=== PATIENT | female | born 1960 | race Caucasian/White ===

== ENCOUNTER 2021-03-01 11:24 | Inpatient (IN) | payer OTHER ==
[2021-02-24 10:27] LABS: BASOPHILS # (AUTO) 0.1 X10'3 (0-0.2); BASOPHILS % (AUTO) 0.9 % (0-1); EOSINOPHILS # (AUTO) 0.2 X10'3 (0-0.9); EOSINOPHILS % (AUTO) 2.1 % (0-6); HEMATOCRIT 40.3 % (35.0-45.0); HEMOGLOBIN 13.7 g/dl (12.0-16.0); LYMPHOCYTES # (AUTO) 0.6 X10'3 (1.1-4.8); MEAN CORPUSCULAR HGB CONC 33.9 g/dL (33.0-36.5); MEAN CORPUSCULAR VOLUME 94.4 FL (78-98); MEAN PLATELET VOLUME 9.6 FL (7.4-10.4); MONOCYTES # (AUTO) 0.7 X10'3 (0-0.9); MONOCYTES % (AUTO) 9.1 % (2-12); NEUTROPHILS # (AUTO) 6.6 X10'3 (1.8-7.7); NEUTROPHILS % (AUTO) 80.9 % (42-75); PLATELET COUNT 281 X10'3 (140-440); RED BLOOD COUNT 4.27 X10'6 (4.20-5.60); RED CELL DISTRIBUTION WIDTH 12.5 % (11.5-14.5); WHITE BLOOD COUNT 8.1 X10'3 (4.5-11.0)
[2021-02-24 10:46] LABS: ALANINE AMINOTRANSFERASE 12 U/L (12-78); ALBUMIN 2.6 G/DL (3.4-5.0); ALBUMIN/GLOBULIN RATIO 0.6 (1.1-1.5); ALKALINE PHOSPHATASE 102 IU/L (46-116); ANION GAP 10 (8-16); ASPARTATE AMINO TRANSFERASE 15 U/L (10-37); BILIRUBIN,TOTAL 0.3 MG/DL (0.1-1.0); BLOOD UREA NITROGEN 9 MG/DL (7-18); BUN/CREATININE RATIO 12.2 (6.6-38.0); CALCIUM 9.4 MG/DL (8.5-10.1); CHLORIDE 102 MMOL/L (99-107); CREATININE 0.74 MG/DL (0.40-0.90); GLUCOSE 104 MG/DL (70-104); POTASSIUM 4.1 MMOL/L (3.5-5.1); SODIUM 138 MMOL/L (135-145); TOTAL CARBON DIOXIDE 26.4 MMOL/L (24-32); TOTAL PROTEIN 7.3 G/DL (6.4-8.2); eGFR 80 ML/MIN
[2021-02-24 10:54] LABS: PARTIAL THROMBOPLASTIN TIME 29 SECONDS (22-32)
[2021-03-01] VITALS (14 sets, daily range): BP systolic 92–119; BP diastolic 44–68
[~2021-03-01] VITALS: Ht 162.6 cm; Wt 64.4 kg
[2021-03-01] MEDS ORDERED: fentaNYL/PF 50MCG/1 ML 2ML syringe ONE (11:30)
[2021-03-01] MEDS ORDERED: iohexol 350MG/ML 100ml bottle IV ONE (11:31)
[2021-03-01] MEDS ORDERED: iohexol 350 MG/ML 50ML vial IV ONE (11:31)
[2021-03-01] MEDS ORDERED: LIDOcaine 1% (10mg/ml)w/preservative injection 20ml MDV ONE (11:31)
[2021-03-01] MEDS ORDERED: midazolam 1 mg/ML 2ml injection ONE ×2 (11:31→12:32)
[2021-03-01] MEDS ORDERED: LORazepam 0.5 MG tablet PO PRN (11:50)
[2021-03-01] MEDS ORDERED: nitroGLYCERIN 0.4mg SUBLingual tab SL PRN (11:50)
[2021-03-01] MEDS ORDERED: normal saline 1,000 ML IV SCH (11:50)
[2021-03-01] MEDS ORDERED: diphenhydrAMINE 25mg capsule PO PRN (11:50)
[2021-03-01] MEDS ORDERED: NO HOME MEDS (11:54)
[2021-03-01 12:48] LABS: ISTAT HGB ART 11.2 g/dl (12.0-16.0); ISTAT Hct ART 33 %PCV (35-48); ISTAT O2 SATURATION ARTERIAL 88 % (95-98); ISTAT SOURCE ART
[2021-03-01 13:17] LABS: ISTAT Hct MIX 31 %PCV (35-48); ISTAT O2 SATURATION MIX VENOUS 65 % (60-80); ISTAT SOURCE VEN
[2021-03-01] MEDS ORDERED: HYDROcodone/acetaminophen 5mg/325mg tablet PO PRN (13:45)
[2021-03-01] MEDS ORDERED: proCHLORperazine 10 MG/2 ml inj IV PRN (13:45)
[2021-03-01] MEDS ORDERED: ondansetron/PF 4mg/2ml inj IV PRN ×2 (13:45→20:10)
[2021-03-01] MEDS ORDERED: HYDROcodone/acetaminophen 10/325mg tab PO PRN (13:45)
[2021-03-01] MEDS: normal saline 1000ml 1,000 ML IV SCH ×2 (13:45→21:01)
--- NOTE | 2021-03-01 18:55 | NUR ---
Patient SP02 82% on room air. Called and spoke with Dr. Head to update patient condition. Per MD patient to be admitted for further workup and observation.
[2021-03-01] MEDS ORDERED: CLOB25SO7 TOP (19:38)
[2021-03-01] MEDS ORDERED: ATOR10TA70 PO (19:38)
[2021-03-01] MEDS ORDERED: ESOM20CA PO (19:38)
[2021-03-01] MEDS ORDERED: acetaminophen 325mg tablet PO PRN (20:10)
[2021-03-01] MEDS ORDERED: potassium Cl 20 mEq SR tablet PO PRN ×2 (20:10)
[2021-03-01] MEDS ORDERED: magnesium hydroxide 30ml (MOM) UD suspension PO PRN (20:10)
[2021-03-01] MEDS ORDERED: potassium Cl 40MEQ/1/2NS 520ml 520 ML IV PRN ×2 (20:10)
[2021-03-01] MEDS ORDERED: mag hydrox/Alum hydrox/simeth 30ml oral suspension PO PRN (20:10)
--- NOTE | 2021-03-01 20:20 | NUR ---
Patient in room 3013B. I have received report from RICARDA Wesley and had the opportunity to ask questions and assume patient care.
--- NOTE | 2021-03-01 20:20 | NUR ---
Patient report given to RICARDA Flores on PCU. All questions and concerns addressed.
--- NOTE | 2021-03-02 00:33 | NUR ---
Pt O2 sat @2200 vitals was 87. Increased O2 delivery to 4.0L, rechecked, pt O2 sat was 90.
[2021-03-02 02:00] VITALS: BP 109/51
--- NOTE | 2021-03-02 02:35 | NUR ---
O2 Sat Pt 02 sat has been below 90% for 1/2 hr. Per O2 instructions, ordered ABG and called Dr. Santacruz, order for face mask. Paged RT.
[2021-03-02 02:57] LABS: ABG BASE EXCESS -3.8 mmol/L (-2.0-2.0); ABG HCO3 19.6 mmol/L (22.0-26.0); ABG OXYGEN SATURATION 86.3 % (94-97); ABG PO2 (T) 53.4 mmHg (75.0-100.0); ALLEN'S TEST POSITIVE; FLOW 4 L/min; FMetHb 0.3 % (0.0-1.5); PATIENT TEMPERATURE 37.2; TOTAL HEMOGLOBIN 11.9 G/dl (12.0-16.0)
--- NOTE | 2021-03-02 03:58 | NUR ---
Critical Value ABG results: pO2 53.4-RT put pt on venturi mask. Called Dr. Santacruz. Will continue to monitor.
[2021-03-02 06:00] VITALS: BP 103/53
--- NOTE | 2021-03-02 06:26 | NUR ---
Problems reprioritized. Patient bedside report given, questions answered & plan of care reviewed with RICARDA Huerta.
--- NOTE | 2021-03-02 07:29 | NUR ---
Patient in room PCU 3013. I have received report from adelfo kraft and had the opportunity to ask questions and assume patient care. Addendum: 03/02/21 at 0730 by Bradley Neal RN time was 0600
[2021-03-02 07:56] LABS: BASOPHILS # (AUTO) 0.1 X10'3 (0-0.2); BASOPHILS % (AUTO) 1.3 % (0-1); EOSINOPHILS # (AUTO) 0.2 X10'3 (0-0.9); EOSINOPHILS % (AUTO) 3.6 % (0-6); HEMATOCRIT 34.2 % (35.0-45.0); HEMOGLOBIN 11.7 g/dl (12.0-16.0); LYMPHOCYTES # (AUTO) 0.4 X10'3 (1.1-4.8); LYMPHOCYTES % (AUTO) 5.9 % (21-51); MEAN CORPUSCULAR HGB CONC 34.1 g/dL (33.0-36.5); MEAN CORPUSCULAR VOLUME 93.6 FL (78-98); MEAN PLATELET VOLUME 10.3 FL (7.4-10.4); MONOCYTES # (AUTO) 0.6 X10'3 (0-0.9); MONOCYTES % (AUTO) 8.1 % (2-12); NEUTROPHILS # (AUTO) 5.6 X10'3 (1.8-7.7); NEUTROPHILS % (AUTO) 81.1 % (42-75); PLATELET COUNT 256 X10'3 (140-440); RED BLOOD COUNT 3.65 X10'6 (4.20-5.60); RED CELL DISTRIBUTION WIDTH 12.5 % (11.5-14.5); WHITE BLOOD COUNT 6.9 X10'3 (4.5-11.0)
[2021-03-02] MEDS: K and/or MAG REPLACEMENT MC SCH ×2 (08:00→20:00)
[2021-03-02 08:01] LABS: RHEUM FACTOR QUAL REFLEX TITER NEGATIVE (Neg)
[2021-03-02 08:06] LABS: ALANINE AMINOTRANSFERASE 12 U/L (12-78); ALBUMIN 1.7 G/DL (3.4-5.0); ALBUMIN/GLOBULIN RATIO 0.4 (1.1-1.5); ALKALINE PHOSPHATASE 75 IU/L (46-116); ANION GAP 10 (8-16); ASPARTATE AMINO TRANSFERASE 15 U/L (10-37); BILIRUBIN,TOTAL 0.3 MG/DL (0.1-1.0); BLOOD UREA NITROGEN 7 MG/DL (7-18); BUN/CREATININE RATIO 12.3 (6.6-38.0); C-REACTIVE PROTEIN 13.22 MG/DL (0.0-0.5); CALCIUM 8.4 MG/DL (8.5-10.1); CHLORIDE 105 MMOL/L (99-107); CREATININE 0.57 MG/DL (0.40-0.90); GLUCOSE 89 MG/DL (70-104); POTASSIUM 4.1 MMOL/L (3.5-5.1); SODIUM 138 MMOL/L (135-145); TOTAL CARBON DIOXIDE 22.8 MMOL/L (24-32); TOTAL PROTEIN 5.9 G/DL (6.4-8.2); eGFR > 90 ML/MIN
[2021-03-02 08:58] LABS: LARGE PLATELETS FEW; PLATELET ESTIMATE NORMAL
[2021-03-02] MEDS: heparin, porcine 5000 units/ml vial SQ SCH ×2 (09:03→20:15)
[2021-03-02] MEDS: ipratropium/albuterol 3ml nebule NEB PRN ×2 (09:21→20:54)
--- NOTE | 2021-03-02 09:55 | NUR ---
PAGER ID: [phone] MESSAGE: [id number] Shona R: severe SOB , acut eonset. sat 90 on 15L high flow NC. ST 120's pain 5/10, pleuritic. alex kraft [id number]
--- NOTE | 2021-03-02 09:59 | NUR ---
pt sat 90- 92% on hiflow nonrebreather. RT paged by charge nurse , pt showing less acute pain. no longer sitting up to bedside posturing, put feet back up in bed and looks more calm. still hurting- 3-12/03. befor ethis she was 01/02 pain wrapping up over her r shoulder, says it came on acute after rt tx and coughing spell, describes pleuritic in nature. now easing
[2021-03-02] MEDS: methylPREDNISolone sod succ 125mg/2ml vial IV SCH ×3 (11:29→20:15)
[2021-03-02] MEDS: morphine 2 MG/ML inj. syringe IV PRN ×2 (11:31→20:16)
[2021-03-02 13:30] VITALS: BP 111/58
[2021-03-02 15:00] VITALS: BP 109/52
--- NOTE | 2021-03-02 17:45 | NUR ---
1 dose solumedrol held to get back on schedule for 1999, no resp distress, pt says she is "breathing very well right now"
[2021-03-02 18:00] VITALS: BP 120/68
--- NOTE | 2021-03-02 18:00 | NUR ---
Patient in room PCU 3013. I have received report from MATHEW and had the opportunity to ask questions and assume patient care.
--- NOTE | 2021-03-02 18:33 | NUR ---
Problems reprioritized. Patient report given, questions answered & plan of care reviewed with adriane rn. pt up to bedside, deny pain and R groin site is stable
--- NOTE | 2021-03-02 19:35 | NUR ---
CALLED DR WEBB DUE TO PT COMPLAINTS OF URINARY PAIN WHILE URINATING, ORDERED BACTRIM BID, PO AND UA SAMPLE.
[2021-03-02] MEDS: sulfamethoxazole/trimethoprim DS (800/160mg) tablet PO SCH (21:28)
[2021-03-02 22:00] VITALS: BP 112/54
[2021-03-03 00:38] LABS: CLARITY,URINE CLEAR (Clear); COLOR,URINE YELLOW (Yellow); GLUCOSE, URINE NEGATIVE (Neg); KETONES,URINE 15 mg/dl (Neg); LEUKOCYTE ESTERASE ,URINE SMALL (Neg); NITRITES, URINE NEGATIVE (Neg); OCCULT BLOOD,URINE SMALL (Neg); PH,URINE 5.5 (4.8-8.0); PROTEIN,URINE NEGATIVE (Neg); UROBILINOGEN,URINE 0.2 E.U/dL (0.2-1.0)
[2021-03-03 00:39] LABS: UA COLLECTION TYPE NON-SPECIFIED
[2021-03-03 00:46] LABS: RBC,URINE NONE SEEN /HPF (0-2); SQUAMOUS EPITHELIAL CELL,UR FEW /LPF (FEW)
[2021-03-03 00:47] LABS: BACTERIA,URINE FEW /HPF (Neg)
[2021-03-03] MEDS: methylPREDNISolone sod succ 125mg/2ml vial IV SCH ×4 (01:58→19:55)
[2021-03-03 02:00] VITALS: BP 101/56
--- NOTE | 2021-03-03 06:22 | NUR ---
Problems reprioritized. Patient report given, questions answered & plan of care reviewed with Chad.
[2021-03-03 06:30] LABS: EOSINOPHILS % (AUTO) 0 % (0-6); HEMOGLOBIN 12.2 g/dl (12.0-16.0); LYMPHOCYTES # (AUTO) 0.4 X10'3 (1.1-4.8); MONOCYTES # (AUTO) 0.1 X10'3 (0-0.9); NEUTROPHILS # (AUTO) 5.4 X10'3 (1.8-7.7); WHITE BLOOD COUNT 5.9 X10'3 (4.5-11.0)
[2021-03-03 06:32] LABS: BASOPHILS % (AUTO) 0.1 % (0-1); HEMATOCRIT 35.6 % (35.0-45.0); LYMPHOCYTES % (AUTO) 6.3 % (21-51); MEAN CORPUSCULAR HEMOGLOBIN 31.6 PG (27.0-31.0); MEAN CORPUSCULAR HGB CONC 34.2 g/dL (33.0-36.5); MEAN CORPUSCULAR VOLUME 92.4 FL (78-98); MEAN PLATELET VOLUME 10.7 FL (7.4-10.4); MONOCYTES % (AUTO) 1.9 % (2-12); NEUTROPHILS % (AUTO) 91.7 % (42-75); PLATELET COUNT 283 X10'3 (140-440); RED BLOOD COUNT 3.85 X10'6 (4.20-5.60); RED CELL DISTRIBUTION WIDTH 12.4 % (11.5-14.5)
[2021-03-03 07:00] VITALS: BP 97/53
[2021-03-03 07:00] LABS: ALANINE AMINOTRANSFERASE 12 U/L (12-78); ALBUMIN 1.8 G/DL (3.4-5.0); ALBUMIN/GLOBULIN RATIO 0.4 (1.1-1.5); ALKALINE PHOSPHATASE 75 IU/L (46-116); ANION GAP 10 (8-16); ASPARTATE AMINO TRANSFERASE 10 U/L (10-37); BILIRUBIN,TOTAL 0.1 MG/DL (0.1-1.0); BLOOD UREA NITROGEN 10 MG/DL (7-18); BUN/CREATININE RATIO 18.5 (6.6-38.0); CALCIUM 9.4 MG/DL (8.5-10.1); CHLORIDE 105 MMOL/L (99-107); CREATININE 0.54 MG/DL (0.40-0.90); GLUCOSE 165 MG/DL (70-104); POTASSIUM 4.6 MMOL/L (3.5-5.1); SODIUM 140 MMOL/L (135-145); TOTAL CARBON DIOXIDE 24.7 MMOL/L (24-32); TOTAL PROTEIN 6.3 G/DL (6.4-8.2); eGFR > 90 ML/MIN
--- NOTE | 2021-03-03 07:03 | NUR ---
Patient in room PCU 3013. I have received report from RICARDA Obrien and had the opportunity to ask questions and assume patient care.
[2021-03-03 07:13] LABS: LARGE PLATELETS FEW; PLATELET ESTIMATE NORMAL
[2021-03-03] MEDS: K and/or MAG REPLACEMENT MC SCH ×2 (08:00→20:00)
[2021-03-03] MEDS: ipratropium/albuterol 3ml nebule NEB PRN (08:02)
[2021-03-03] MEDS: sulfamethoxazole/trimethoprim DS (800/160mg) tablet PO SCH ×2 (08:19→19:47)
[2021-03-03] MEDS: heparin, porcine 5000 units/ml vial SQ SCH ×2 (08:21→19:50)
[2021-03-03] MEDS ORDERED: furosemide 40mg/4ml inj IV ONE (08:45)
[2021-03-03 09:40] LABS: ANTINUCLEAR ANTIBODIES Negative (Negative)
[2021-03-03 11:00] VITALS: BP 113/71
--- NOTE | 2021-03-03 11:48 | NUR ---
Paged Dr. Ball regarding Output after lasix 20mg IV administration PAGER ID: [phone] MESSAGE: [facility] rm 3013B Alex Nagel after 20mg of Lasix give she has output of 1850ml. Mary CHOWDARY [id number]
[2021-03-03 15:00] VITALS: BP 119/57
[2021-03-03 18:00] VITALS: BP 116/54
--- NOTE | 2021-03-03 18:26 | NUR ---
Problems reprioritized. Patient report given, questions answered & plan of care reviewed with RICARDA Cruz.
[2021-03-03] MEDS: lactobacillus rhamnosus 10,000 MMU CELLS/CAPSULE PO SCH (19:48)
[2021-03-03] MEDS: furosemide 20 MG/2 ML vial IV SCH (19:54)
[2021-03-03 22:00] VITALS: BP 118/47
[2021-03-03] MEDS: OXAZEpam 15mg capsule PO PRN (22:42)
[2021-03-04 02:00] VITALS: BP 104/47
[2021-03-04] MEDS: methylPREDNISolone sod succ 125mg/2ml vial IV SCH ×4 (02:30→20:52)
--- NOTE | 2021-03-04 06:00 | NUR ---
Patient in room PCU 3013. I have received report from Nancy CHOWDARY at bedside and had the opportunity to ask questions and assume patient care.
--- NOTE | 2021-03-04 06:22 | NUR ---
Problems reprioritized. Patient report given, questions answered & plan of care reviewed with Mary CHOWDARY at bedside.
[2021-03-04 06:39] LABS: BASOPHILS % (AUTO) 0.3 % (0-1); EOSINOPHILS % (AUTO) 0 % (0-6); LYMPHOCYTES # (AUTO) 0.4 X10'3 (1.1-4.8); LYMPHOCYTES % (AUTO) 2.6 % (21-51); MEAN CORPUSCULAR HEMOGLOBIN 31.5 PG (27.0-31.0); MEAN CORPUSCULAR HGB CONC 34.4 g/dL (33.0-36.5); MEAN CORPUSCULAR VOLUME 91.6 FL (78-98); MEAN PLATELET VOLUME 10.1 FL (7.4-10.4); MONOCYTES # (AUTO) 0.3 X10'3 (0-0.9); MONOCYTES % (AUTO) 1.8 % (2-12); NEUTROPHILS # (AUTO) 14.4 X10'3 (1.8-7.7); NEUTROPHILS % (AUTO) 95.3 % (42-75); PLATELET COUNT 342 X10'3 (140-440); RED BLOOD COUNT 3.82 X10'6 (4.20-5.60); RED CELL DISTRIBUTION WIDTH 12.8 % (11.5-14.5); WHITE BLOOD COUNT 15.1 X10'3 (4.5-11.0)
[2021-03-04 07:01] LABS: ALANINE AMINOTRANSFERASE 13 U/L (12-78); ALBUMIN/GLOBULIN RATIO 0.5 (1.1-1.5); ALKALINE PHOSPHATASE 72 IU/L (46-116); ANION GAP 7 (8-16); ASPARTATE AMINO TRANSFERASE 12 U/L (10-37); BILIRUBIN,TOTAL 0.1 MG/DL (0.1-1.0); BLOOD UREA NITROGEN 20 MG/DL (7-18); BUN/CREATININE RATIO 24.4 (6.6-38.0); CALCIUM 9.3 MG/DL (8.5-10.1); CHLORIDE 106 MMOL/L (99-107); CREATININE 0.82 MG/DL (0.40-0.90); GLUCOSE 160 MG/DL (70-104); POTASSIUM 4.3 MMOL/L (3.5-5.1); SODIUM 141 MMOL/L (135-145); TOTAL CARBON DIOXIDE 28.3 MMOL/L (24-32); TOTAL PROTEIN 6.2 G/DL (6.4-8.2); eGFR 71 ML/MIN
[2021-03-04] MEDS: furosemide 20 MG/2 ML vial IV SCH ×2 (07:33→20:00)
[2021-03-04] MEDS: heparin, porcine 5000 units/ml vial SQ SCH ×2 (07:34→20:52)
[2021-03-04] MEDS: lactobacillus rhamnosus 10,000 MMU CELLS/CAPSULE PO SCH ×2 (07:34→20:52)
[2021-03-04] MEDS: atorvastatin 10mg tablet PO SCH (07:34)
[2021-03-04] MEDS: sulfamethoxazole/trimethoprim DS (800/160mg) tablet PO SCH ×2 (07:34→20:52)
[2021-03-04] MEDS: pantoprazole 40mg Tablet.DR PO SCH (07:34)
[2021-03-04] MEDS: clobetasol 0.05% cream 30gm TP SCH (07:35)
[2021-03-04] MEDS: K and/or MAG REPLACEMENT MC SCH ×2 (07:38→20:00)
[2021-03-04] MEDS: ipratropium/albuterol 3ml nebule NEB PRN (08:40)
[2021-03-04 11:00] VITALS: BP 99/56
[2021-03-04 18:00] VITALS: BP 93/50
--- NOTE | 2021-03-04 18:05 | NUR ---
Problems reprioritized. Patient report given, questions answered & plan of care reviewed with Nancy CHOWDARY at bedside [].
[2021-03-04 20:37] LABS: ANGIOTESIN-CONVERTING ENZYME 14 U/L (14-82)
[2021-03-04 22:00] VITALS: BP 110/68
[2021-03-04] MEDS: OXAZEpam 15mg capsule PO PRN (23:17)
[2021-03-05 02:00] VITALS: BP 93/48
[2021-03-05] MEDS: methylPREDNISolone sod succ 125mg/2ml vial IV SCH ×4 (02:23→21:00)
--- NOTE | 2021-03-05 06:05 | NUR ---
Patient in room PCU 3013. I have received report from Nancy CHOWDARY at bedside and had the opportunity to ask questions and assume patient care.
--- NOTE | 2021-03-05 06:33 | NUR ---
Problems reprioritized. Patient report given, questions answered & plan of care reviewed with Mary CHOWDARY at bedside.
[2021-03-05 06:59] LABS: BASOPHILS % (AUTO) 0.2 % (0-1); EOSINOPHILS % (AUTO) 0 % (0-6); HEMATOCRIT 35.5 % (35.0-45.0); HEMOGLOBIN 11.9 g/dl (12.0-16.0); LYMPHOCYTES # (AUTO) 0.4 X10'3 (1.1-4.8); LYMPHOCYTES % (AUTO) 3.7 % (21-51); MEAN CORPUSCULAR HGB CONC 33.5 g/dL (33.0-36.5); MEAN CORPUSCULAR VOLUME 92.5 FL (78-98); MEAN PLATELET VOLUME 10.3 FL (7.4-10.4); MONOCYTES # (AUTO) 0.2 X10'3 (0-0.9); MONOCYTES % (AUTO) 1.6 % (2-12); NEUTROPHILS % (AUTO) 94.5 % (42-75); PLATELET COUNT 328 X10'3 (140-440); RED BLOOD COUNT 3.83 X10'6 (4.20-5.60); RED CELL DISTRIBUTION WIDTH 12.5 % (11.5-14.5); WHITE BLOOD COUNT 11.6 X10'3 (4.5-11.0)
[2021-03-05 07:24] LABS: ALANINE AMINOTRANSFERASE 13 U/L (12-78); ALBUMIN 2.2 G/DL (3.4-5.0); ALBUMIN/GLOBULIN RATIO 0.6 (1.1-1.5); ALKALINE PHOSPHATASE 69 IU/L (46-116); ANION GAP 8 (8-16); ASPARTATE AMINO TRANSFERASE 13 U/L (10-37); BILIRUBIN,TOTAL 0.1 MG/DL (0.1-1.0); BLOOD UREA NITROGEN 20 MG/DL (7-18); BUN/CREATININE RATIO 26.7 (6.6-38.0); CALCIUM 9.3 MG/DL (8.5-10.1); CHLORIDE 105 MMOL/L (99-107); CREATININE 0.75 MG/DL (0.40-0.90); GLUCOSE 146 MG/DL (70-104); POTASSIUM 4.7 MMOL/L (3.5-5.1); SODIUM 140 MMOL/L (135-145); TOTAL CARBON DIOXIDE 27.5 MMOL/L (24-32); TOTAL PROTEIN 6.1 G/DL (6.4-8.2); eGFR 78 ML/MIN
[2021-03-05] MEDS: clobetasol 0.05% cream 30gm TP SCH (08:00)
[2021-03-05] MEDS: K and/or MAG REPLACEMENT MC SCH ×2 (08:00→20:00)
[2021-03-05] MEDS: heparin, porcine 5000 units/ml vial SQ SCH ×2 (08:26→21:00)
[2021-03-05] MEDS: furosemide 20 MG/2 ML vial IV SCH ×2 (08:26→20:59)
[2021-03-05] MEDS: lactobacillus rhamnosus 10,000 MMU CELLS/CAPSULE PO SCH ×2 (08:26→21:01)
[2021-03-05] MEDS: pantoprazole 40mg Tablet.DR PO SCH (08:27)
[2021-03-05] MEDS: sulfamethoxazole/trimethoprim DS (800/160mg) tablet PO SCH ×2 (08:27→21:01)
[2021-03-05] MEDS: atorvastatin 10mg tablet PO SCH (08:28)
[2021-03-05 11:00] VITALS: BP 110/58
[2021-03-05 15:00] VITALS: BP 118/55
[2021-03-05 18:00] VITALS: BP 110/60
--- NOTE | 2021-03-05 18:07 | NUR ---
Problems reprioritized. Patient report given, questions answered & plan of care reviewed with Tracy RN at Bedside.
[2021-03-06] MEDS: methylPREDNISolone sod succ 125mg/2ml vial IV SCH ×2 (01:53→08:27)
[2021-03-06 06:00] VITALS: BP 101/60
--- NOTE | 2021-03-06 06:20 | NUR ---
Patient in room PCU 3013. I have received report from Nancy CHOWDARY at bedside and had the opportunity to ask questions and assume patient care.
--- NOTE | 2021-03-06 06:33 | NUR ---
Problems reprioritized. Patient report given, questions answered & plan of care reviewed with Mary CHOWDARY at bedside.
[2021-03-06] MEDS: K and/or MAG REPLACEMENT MC SCH ×2 (08:00→20:00)
[2021-03-06 08:18] LABS: BASOPHILS % (AUTO) 0.1 % (0-1); EOSINOPHILS % (AUTO) 0 % (0-6); HEMATOCRIT 38.1 % (35.0-45.0); HEMOGLOBIN 12.7 g/dl (12.0-16.0); LYMPHOCYTES # (AUTO) 0.4 X10'3 (1.1-4.8); LYMPHOCYTES % (AUTO) 4.7 % (21-51); MEAN CORPUSCULAR HEMOGLOBIN 31.2 PG (27.0-31.0); MEAN CORPUSCULAR HGB CONC 33.3 g/dL (33.0-36.5); MEAN CORPUSCULAR VOLUME 93.9 FL (78-98); MEAN PLATELET VOLUME 10.2 FL (7.4-10.4); MONOCYTES # (AUTO) 0.3 X10'3 (0-0.9); MONOCYTES % (AUTO) 2.9 % (2-12); NEUTROPHILS # (AUTO) 7.9 X10'3 (1.8-7.7); NEUTROPHILS % (AUTO) 92.3 % (42-75); PLATELET COUNT 354 X10'3 (140-440); RED BLOOD COUNT 4.06 X10'6 (4.20-5.60); RED CELL DISTRIBUTION WIDTH 12.5 % (11.5-14.5); WHITE BLOOD COUNT 8.5 X10'3 (4.5-11.0)
[2021-03-06] MEDS: sulfamethoxazole/trimethoprim DS (800/160mg) tablet PO SCH ×2 (08:27→19:59)
[2021-03-06] MEDS: furosemide 20 MG/2 ML vial IV SCH ×2 (08:27→19:58)
[2021-03-06] MEDS: atorvastatin 10mg tablet PO SCH (08:27)
[2021-03-06] MEDS: heparin, porcine 5000 units/ml vial SQ SCH ×2 (08:27→19:59)
[2021-03-06] MEDS: lactobacillus rhamnosus 10,000 MMU CELLS/CAPSULE PO SCH ×2 (08:28→19:59)
[2021-03-06] MEDS: pantoprazole 40mg Tablet.DR PO SCH (08:28)
[2021-03-06] MEDS: clobetasol 0.05% cream 30gm TP SCH (08:40)
[2021-03-06 08:50] LABS: ALANINE AMINOTRANSFERASE 26 U/L (12-78); ALBUMIN 2.4 G/DL (3.4-5.0); ALBUMIN/GLOBULIN RATIO 0.6 (1.1-1.5); ALKALINE PHOSPHATASE 68 IU/L (46-116); ANION GAP 6 (8-16); ASPARTATE AMINO TRANSFERASE 24 U/L (10-37); BILIRUBIN,TOTAL 0.2 MG/DL (0.1-1.0); BLOOD UREA NITROGEN 23 MG/DL (7-18); BUN/CREATININE RATIO 29.1 (6.6-38.0); CALCIUM 9.3 MG/DL (8.5-10.1); CHLORIDE 100 MMOL/L (99-107); CREATININE 0.79 MG/DL (0.40-0.90); GLUCOSE 141 MG/DL (70-104); POTASSIUM 4.3 MMOL/L (3.5-5.1); SODIUM 136 MMOL/L (135-145); TOTAL PROTEIN 6.3 G/DL (6.4-8.2); eGFR 74 ML/MIN
[2021-03-06] MEDS: methylPREDNISolone sod succ/PF 40mg inj. IV SCH ×2 (10:05→19:58)
[2021-03-06 11:00] VITALS: BP 121/68
[2021-03-06 15:00] VITALS: BP 128/62
--- NOTE | 2021-03-06 16:02 | NUR ---
Initial: Pt admit w/ SOB s/p cardiac cath DX pulmonary fibrosis, acute respiratory failure, emphysema, PNA, and COPD exacerbation per EMR. PO initially ~75% avg regular diet though declined to ~25% avg meals past 2.5 days partially meeting needs. Noted pt SOB improved and no significant BM since admit 5 days per EMR. Constipation likely impacting PO; TY d/w RN Regarding routine bowel care if MD agreeable. Pt received PRN MoM 02/23 w/ small BM following but still no significant BM. Will send power pudding WS tonight to assist bowel regularity; dietary notified. Will continue to monitor for further PO trends and bowel care needs. Rec: 1. continue regular diet; encourage PO 2. monitor for ONS needs pending further PO trends once constipation resolved 3. routine bowel care; no significant BM 5 days; power pudding 1x WS 4. scaled wt this admit; subsequent weekly wts Addendum: 03/06/21 at [address] Amended: Links added.
[2021-03-06 18:00] VITALS: BP 113/51
--- NOTE | 2021-03-06 18:25 | NUR ---
Patient in room PCU 3013. I have received report from Mary CHOWDARY and had the opportunity to ask questions and assume patient care.
--- NOTE | 2021-03-06 18:28 | NUR ---
Problems reprioritized. Patient report given, questions answered & plan of care reviewed with Francie CHOWDARY at bedside.
[2021-03-06 22:00] VITALS: BP 101/59
[2021-03-07 02:00] VITALS: BP 115/48
--- NOTE | 2021-03-07 02:14 | NUR ---
PT WOKE UP SWEATY AND WET AND COLD. CHANGED GOWN AND LINENS. PT THANKFUL
--- NOTE | 2021-03-07 03:52 | NUR ---
Pt is now down to a nasal cannula from a high flow nasal cannula. pt is comfortable on 5L NC and saturating well at 92%.
[2021-03-07 06:00] VITALS: BP 108/54
--- NOTE | 2021-03-07 06:16 | NUR ---
Patient in room PCU 3013. I have received report from Francie CHOWDARY at bedside and had the opportunity to ask questions and assume patient care.
--- NOTE | 2021-03-07 06:17 | NUR ---
Problems reprioritized. Patient report given, questions answered & plan of care reviewed with Mary CHOWDARY at bedside.
[2021-03-07] MEDS: furosemide 20 MG/2 ML vial IV SCH (07:45)
[2021-03-07] MEDS: methylPREDNISolone sod succ/PF 40mg inj. IV SCH (07:45)
[2021-03-07] MEDS: atorvastatin 10mg tablet PO SCH (07:46)
[2021-03-07] MEDS: pantoprazole 40mg Tablet.DR PO SCH (07:46)
[2021-03-07] MEDS: lactobacillus rhamnosus 10,000 MMU CELLS/CAPSULE PO SCH (07:46)
[2021-03-07] MEDS: K and/or MAG REPLACEMENT MC SCH (07:46)
[2021-03-07] MEDS: sulfamethoxazole/trimethoprim DS (800/160mg) tablet PO SCH (07:46)
[2021-03-07] MEDS: heparin, porcine 5000 units/ml vial SQ SCH (07:46)
[2021-03-07] MEDS: clobetasol 0.05% cream 30gm TP SCH (07:46)
[2021-03-07] MEDS ORDERED: IPRA3AMP9 NEB (09:01)
[2021-03-07] MEDS ORDERED: SULF1TAB45 PO (09:01)
[2021-03-07] MEDS ORDERED: PRED10TA23 PO (09:01)
--- NOTE | 2021-03-07 09:17 | NUR ---
O2 Sat at rest on room air: 86% If below 89%: Recovery O2 Sat at rest on 5LPM via nasal canula No further documentation is necessary. Addendum: 03/07/21 at 0953 by Artie Watts RN Recovery O2 sat 92% at rest on 5LPM via nasal canula.
[2021-03-07 11:00] VITALS: BP 101/60
--- NOTE | 2021-03-07 13:11 | NUR ---
Patient ambulated on 4LPM of O2 via nasal canula with an oxygen saturation of 82% While ambulating patient was recovered on 6LPM of O2 via nasal canula with an oxygen saturation of 93% Addendum: 03/07/21 at 1352 by Leatha Garcia RN Patient's oxygen saturation at rest was 86%.
--- NOTE | 2021-03-07 13:15 | NUR ---
Oxygen company to bring oxygen for patient to be discharged. Currently waiting for oxygen
--- NOTE | 2021-03-07 15:06 | NUR ---
Oxygen has been delivered for patient. Awaiting for patients to arrive and load up oxygen supplied to take upon discharge
--- NOTE | 2021-03-07 16:04 | NUR ---
Patient is stable and comfortable at discharge. Telemetry and PIV was removed and cannula was intact with no edema or redness at site. Gathered all patient valuables and oxygen tank and gave to patient and patient family members. I discussed in detail and gave all discharge instruction and education to patient and patient family members. The patient and patient family members were able to ask questions and receive answers. Patient and family members were able to verbalize back all discharge information and discharge education. I wheeled patient out to lobby in wheelchair accompanied by family members. Patient left hospital in private vehicle with family members.
== END 2021-03-07 15:50 | disposition home or self-care (01) | DRG 177 ==
LOC: SSTAY O 11:24 → PCU 3S 20:08
PROVIDERS: ADMIT Internal Medicine; ATTEND Internal Medicine
PROC: 4A023N8 Measurement of Cardiac Sampling and Pressure, Bilateral, Percutaneous Approach (ICD-10-PCS; principal; 2021-03-01)
PROC: B2111ZZ Fluoroscopy of Multiple Coronary Arteries using Low Osmolar Contrast (ICD-10-PCS; 2021-03-01)
PROC: B2151ZZ Fluoroscopy of Left Heart using Low Osmolar Contrast (ICD-10-PCS; 2021-03-01)
PROC: B41F1ZZ Fluoroscopy of Right Lower Extremity Arteries using Low Osmolar Contrast (ICD-10-PCS; 2021-03-01)
PROC: 5A0955A Assistance with Respiratory Ventilation, Greater than 96 Consecutive Hours, High Flow/Velocity Cannula (ICD-10-PCS; 2021-03-02)
DX: J69.0 Pneumonitis due to inhalation of food and vomit (principal); J96.01 Acute respiratory failure with hypoxia; K21.9 Gastro-esophageal reflux disease without esophagitis; I27.20 Pulmonary hypertension, unspecified; J43.9 Emphysema, unspecified; E78.5 Hyperlipidemia, unspecified; Z80.1 Family history of malignant neoplasm of trachea, bronchus and lung; Z87.891 Personal history of nicotine dependence; Z98.82 Breast implant status; Z99.81 Dependence on supplemental oxygen; Z88.0 Allergy status to penicillin; Z79.899 Other long term (current) drug therapy
CPT/HCPCS: 36415; 36600; 71045; 71046; 71250; 80053; 81001; 82164; 82803; 83880; 84145; 85008; 85014; 85018; 85025; 85610; 85651; 85730; 86038; 86140; 86430; 87081; 93005; 93460; 94640; 94760; 99152; 99153; A4620; A6258; C1751; C1760; C1769; G0378; J1644; J1940; J2001; J2250; J2270; J2920; J2930; J3010; J7030; Q0163; Q9967